=== PATIENT | male | born 1970 | race Caucasian/White ===

== ENCOUNTER 2020-01-01 02:45 | Emergency (ER) | payer OTHER ==
[~2020-01-01] VITALS: Ht 185.4 cm; Wt 104.3 kg
[2020-01-01] MEDS ORDERED: NORVASC5 MG PO (07:36)
== END 2020-01-01 07:59 | disposition home or self-care (01) ==
LOC: ER 02:45 → CPU-OBS 02:46 → ER 07:59
DX: R07.89 Other chest pain (principal)
CPT/HCPCS: G0378; G0379; 93005

== ENCOUNTER 2024-05-09 15:29 | Outpatient (CLI) | payer OTHER ==
[~2024-05-09 15:29] MED LIST: NORVASC5 MG PO
== END 2024-05-09 15:37 | disposition home or self-care (01) ==
LOC: RAD 15:29
DX: M25.531 Pain in right wrist (principal); M25.532 Pain in left wrist; M79.642 Pain in left hand

== ENCOUNTER 2024-10-15 14:45 | Outpatient (CLI) | payer OTHER | END 2024-10-15 15:04 | disposition home or self-care (01) | LOC: RAD 14:45 | DX: S22.41XD Multiple fractures of ribs, right side, subsequent encounter for fracture with routine healing (principal) ==

== ENCOUNTER 2025-05-26 11:01 | Outpatient (CLI) | payer OTHER | END 2025-05-26 11:04 | disposition home or self-care (01) | LOC: SONOGRAMA 11:01 | DX: M54.41 Lumbago with sciatica, right side (principal); G56.21 Lesion of ulnar nerve, right upper limb | CPT/HCPCS: 72148 ==